=== PATIENT | female | born 1955 | race African-American/Black ===

== ENCOUNTER 2020-01-02 20:15 | Inpatient (IN) | payer OTHER, MEDICAID ==
[~2020-01-02] VITALS: Ht 162.6 cm; Wt 101.5 kg
[2020-01-02] MEDS ORDERED: NITROGLYCERIN 0.2MG/HR TOPICAL PATCH TD ONE ×2 (20:51→21:00)
[2020-01-02] MEDS ORDERED: NITROGLYCERIN 0.4 MG SL TAB SL ONE ×2 (20:52→21:00)
[2020-01-02] MEDS ORDERED: ASPirin 325 MG TAB ONE (20:52)
[2020-01-02] MEDS ORDERED: ASPirin 325 MG TAB PO ONE (21:00)
[2020-01-02 21:14] LABS: Basophils # (auto) 0.1 10 ^3/uL (0-0.2); Basophils % (auto) 1.5 % (0.0-2.0); Eosinophils # (auto) 0.1 10 ^3/uL (0-0.8); Eosinophils % (auto) 0.7 % (0.0-7.0); Hematocrit 41.7 % (36.0-46.0); Hemoglobin 13.7 g/dL (12.2-16.2); Lymphocytes # (auto) 2.4 10 ^3/uL (0.4-5.4); Lymphocytes % (auto) 33.3 % (10.0-50.0); Mean Corpuscular Hemoglobin 31.5 pg (28.0-32.0); Mean Corpuscular Hgb Conc. 32.9 g/dL (32.0-36.0); Mean Corpuscular Volume 95.6 fL (80.0-100.0); Monocytes # (auto) 0.4 10 ^3/uL (0-1.3); Neutrophils # (auto) 4.2 10 ^3/uL (1.6-8.6); Neutrophils % (auto) 58.5 % (37.0-80.0); Nucleated Red Blood Cells % 0.1 %; Platelet Count (auto) 408 10^3/uL (140-450); Red Blood Cells 4.36 10^6/uL (4.0-5.20); Red Cell Distribution Width 13.6 % (11.8-14.3); White Blood Cell 7.2 10^3/uL (4.4-10.8)
[2020-01-02 21:20] LABS: Urine Bacteria MANY /hpf (None Seen); Urine Blood Negative /uL (Negative); Urine Specific Gravity 1.005 (1.001-1.035); Urine WBC 6 /hpf (0 - 5)
[2020-01-02 21:29] LABS: INR 1.04 (0.9-1.15)
[2020-01-02 21:36] LABS: Albumin 4.7 g/dL (3.4-5.0); Anion Gap 9 (5-15); Blood Urea Nitrogen 15 mg/dL (7-18); Calcium 9.6 mg/dL (8.5-10.1); Carbon Dioxide 23 mmol/L (21-32); Chloride 107 mmol/L (98-107); Glucose 123 mg/dL (74-106); Magnesium 2.4 mg/dL (1.6-2.6); Potassium 3.5 mmol/L (3.5-5.1); Sodium 139 mmol/L (136-145)
[2020-01-02 21:41] LABS: Alanine Aminotransferase 31 U/L (13-56); Alkaline Phosphatase 92 U/L (45-117); Aspartate Aminotransferase 25 U/L (15-37); BUN/Creatinine Ratio 16.9; Bilirubin, Total 0.6 mg/dL (0.2-1.0); GFR African American 83 mL/min; GFR Non-African American 68 mL/min; Total Protein 9.2 g/dL (6.4-8.2)
[2020-01-02] MEDS ORDERED: ONDANSETRON HCL 4 MG/2 ML VIAL IV ONE (22:30)
[2020-01-02] MEDS ORDERED: HYDROmorphone HCL 2 MG/ML VL IV ONE (22:30)
[2020-01-03] MEDS ORDERED: ACETAMINOPHEN/CODEINE#3 (300/30mg) TAB PO ONE (00:30)
[2020-01-03] MEDS ORDERED: NITROGLYCERIN 0.4 MG SL TAB SL PRN (00:45)
[2020-01-03] MEDS ORDERED: MORPHINE SULF INJ 2 MG/ML SYRINGE 1ML IV PRN ×4 (00:45→13:00)
[2020-01-03] MEDS ORDERED: ONDANSETRON HCL 4 MG/2 ML VIAL IV PRN (00:45)
[2020-01-03] MEDS ORDERED: ACETAMINOPHEN 325 MG TAB PO PRN (00:45)
[2020-01-03] MEDS ORDERED: LORazepam 0.5 MG TAB PO PRN (00:45)
[2020-01-03] MEDS ORDERED: DOCUSATE SOD 100 MG CAP PO PRN (00:45)
[2020-01-03] MEDS ORDERED: LORazepam 2MG/ML-1ML VIAL IV ONE (01:30)
[2020-01-03] MEDS: SODIUM CHLORIDE 0.9% 1,000 ML IV SCH ×2 (01:51→03:12)
[2020-01-03] MEDS: cefTRIAXone 1GM/50ML D5W 50 ML IV SCH ×2 (01:51→21:08)
[2020-01-03 03:21] LABS: Basophils # (auto) 0.1 10 ^3/uL (0-0.2); Basophils % (auto) 0.9 % (0.0-2.0); Eosinophils # (auto) 0 10 ^3/uL (0-0.8); Eosinophils % (auto) 0.2 % (0.0-7.0); Hematocrit 38.9 % (36.0-46.0); Hemoglobin 12.9 g/dL (12.2-16.2); Lymphocytes # (auto) 2.1 10 ^3/uL (0.4-5.4); Lymphocytes % (auto) 29.9 % (10.0-50.0); Mean Corpuscular Hgb Conc. 33.3 g/dL (32.0-36.0); Mean Corpuscular Volume 96.1 fL (80.0-100.0); Monocytes # (auto) 0.5 10 ^3/uL (0-1.3); Monocytes % (auto) 6.9 % (0.0-12.0); Neutrophils # (auto) 4.3 10 ^3/uL (1.6-8.6); Neutrophils % (auto) 62.1 % (37.0-80.0); Nucleated Red Blood Cells % 0.1 %; Platelet Count (auto) 384 10^3/uL (140-450); Red Blood Cells 4.04 10^6/uL (4.0-5.20); Red Cell Distribution Width 13.3 % (11.8-14.3)
[2020-01-03 03:40] LABS: Calcium 8.9 mg/dL (8.5-10.1); Potassium 3.9 mmol/L (3.5-5.1)
[2020-01-03 03:43] LABS: BUN/Creatinine Ratio 18.5
[2020-01-03] MEDS ORDERED: ACYC1CAP23 PO (04:02)
[2020-01-03] MEDS ORDERED: AMLO5TAB15 PO (04:02)
[2020-01-03] MEDS ORDERED: CHOL20009 PO (04:02)
[2020-01-03] MEDS ORDERED: ATO40T PO (04:02)
[2020-01-03] MEDS ORDERED: TRAZ-181 PO (04:02)
[2020-01-03] MEDS ORDERED: HYDR-4833 PO (04:02)
[2020-01-03] MEDS ORDERED: FLUO-125 PO (04:02)
[2020-01-03] MEDS ORDERED: GABA300C10 PO (04:02)
[2020-01-03] MEDS ORDERED: TIZA4CAP PO (04:02)
[2020-01-03] MEDS ORDERED: HYDR-4833 GT (04:02)
[2020-01-03] MEDS ORDERED: OXYB5TAB24 PO (04:03)
[2020-01-03] MEDS: cloNIDine HCL 0.1 MG TAB PO PRN (05:02)
[2020-01-03 09:00] VITALS: BP 115/70
[2020-01-03] MEDS ORDERED: POTASSIUM CHLORIDE 8 MEQ TAB PO ONE (12:15)
[2020-01-03] MEDS ORDERED: HCTZ 25 MG TAB PO ONE (12:15)
[2020-01-03 13:00] VITALS: BP 127/79
[2020-01-03 17:00] VITALS: BP 130/87
[2020-01-03] MEDS: amLODIPine BESYLATE 5 MG TAB PO SCH (17:24)
[2020-01-03] MEDS ORDERED: LORazepam 2MG/ML-1ML VIAL IV PRN (19:30)
[2020-01-03 20:00] VITALS: BP 135/87
[2020-01-03] MEDS: HYDROcodone-ACET 5/325MG TAB PO PRN (21:07)
[2020-01-03] MEDS: PRAMIPEXOLE DIHYDROCHLORIDE MO 0.25 MG TAB PO SCH (21:10)
[2020-01-03 21:19] VITALS: BP 115/70
[2020-01-03 22:00] VITALS: BP 135/87
[2020-01-03 22:49] LABS: % Iron Saturation 21.8 % (15-50)
[2020-01-03 23:02] LABS: Folate (Folic Acid) > 24.00 ng/mL (5.38-24)
[2020-01-04] VITALS (7 sets, daily range): BP systolic 115–161; BP diastolic 66–98
[2020-01-04 06:47] LABS: Potassium 3.9 mmol/L (3.5-5.1)
[2020-01-04 06:55] LABS: BUN/Creatinine Ratio 14.5; Calcium 9.5 mg/dL (8.5-10.1)
[2020-01-04 06:56] LABS: Basophils # (auto) 0 10 ^3/uL (0-0.2); Basophils % (auto) 0.7 % (0.0-2.0); Eosinophils # (auto) 0.1 10 ^3/uL (0-0.8); Eosinophils % (auto) 1.6 % (0.0-7.0); Hematocrit 41.2 % (36.0-46.0); Hemoglobin 13.7 g/dL (12.2-16.2); Lymphocytes # (auto) 1.7 10 ^3/uL (0.4-5.4); Lymphocytes % (auto) 39.1 % (10.0-50.0); Mean Corpuscular Hemoglobin 31.8 pg (28.0-32.0); Mean Corpuscular Hgb Conc. 33.2 g/dL (32.0-36.0); Mean Corpuscular Volume 95.9 fL (80.0-100.0); Monocytes # (auto) 0.4 10 ^3/uL (0-1.3); Monocytes % (auto) 9.2 % (0.0-12.0); Neutrophils # (auto) 2.2 10 ^3/uL (1.6-8.6); Neutrophils % (auto) 49.4 % (37.0-80.0); Nucleated Red Blood Cells % 0.2 %; Platelet Count (auto) 413 10^3/uL (140-450); Red Cell Distribution Width 13.7 % (11.8-14.3); White Blood Cell 4.5 10^3/uL (4.4-10.8)
[2020-01-04] MEDS: HYDROcodone-ACET 5/325MG TAB PO PRN ×2 (07:55→11:56)
[2020-01-04] MEDS: POTASSIUM CHLORIDE 8 MEQ TAB PO SCH (08:51)
[2020-01-04] MEDS: amLODIPine BESYLATE 5 MG TAB PO SCH (08:52)
[2020-01-04] MEDS: HCTZ 25 MG TAB PO SCH (08:52)
[2020-01-04] MEDS ORDERED: LOSARTAN POTASSIUM 25 MG TAB PO SCH (10:00)
[2020-01-04] MEDS ORDERED: LOSARTAN POTASSIUM 25 MG TAB PO ONE (10:15)
[2020-01-04] MEDS: cloNIDine HCL 0.1 MG TAB PO PRN (12:24)
[2020-01-04] MEDS: cefTRIAXone 1GM/50ML D5W 50 ML IV SCH (22:30)
[2020-01-04] MEDS: LOSARTAN POTASSIUM 25 MG TAB PO SCH (22:31)
[2020-01-04] MEDS: PRAMIPEXOLE DIHYDROCHLORIDE MO 0.25 MG TAB PO SCH (22:32)
[2020-01-05] MEDS: HYDROcodone-ACET 5/325MG TAB PO PRN ×2 (00:46→13:23)
[2020-01-05 05:00] VITALS: BP 145/76
[2020-01-05 05:36] LABS: Basophils # (auto) 0 10 ^3/uL (0-0.2); Eosinophils # (auto) 0.1 10 ^3/uL (0-0.8); Eosinophils % (auto) 1.5 % (0.0-7.0); Hematocrit 41.1 % (36.0-46.0); Hemoglobin 13.8 g/dL (12.2-16.2); Lymphocytes # (auto) 2.1 10 ^3/uL (0.4-5.4); Lymphocytes % (auto) 42.3 % (10.0-50.0); Mean Corpuscular Hemoglobin 32.2 pg (28.0-32.0); Mean Corpuscular Hgb Conc. 33.5 g/dL (32.0-36.0); Mean Corpuscular Volume 96.1 fL (80.0-100.0); Monocytes # (auto) 0.4 10 ^3/uL (0-1.3); Monocytes % (auto) 8.7 % (0.0-12.0); Neutrophils # (auto) 2.3 10 ^3/uL (1.6-8.6); Neutrophils % (auto) 46.5 % (37.0-80.0); Platelet Count (auto) 382 10^3/uL (140-450); Red Blood Cells 4.27 10^6/uL (4.0-5.20); Red Cell Distribution Width 13.6 % (11.8-14.3)
[2020-01-05 05:51] LABS: Anion Gap 7 (5-15); Blood Urea Nitrogen 15 mg/dL (7-18); Calcium 9.6 mg/dL (8.5-10.1); Carbon Dioxide 28 mmol/L (21-32); Chloride 104 mmol/L (98-107); Glucose 104 mg/dL (74-106); Potassium 3.7 mmol/L (3.5-5.1); Sodium 139 mmol/L (136-145)
[2020-01-05 05:56] LABS: BUN/Creatinine Ratio 16.9; GFR African American 83 mL/min; GFR Non-African American 68 mL/min
[2020-01-05 09:00] VITALS: BP 128/71
[2020-01-05] MEDS: amLODIPine BESYLATE 5 MG TAB PO SCH (09:59)
[2020-01-05] MEDS: POTASSIUM CHLORIDE 8 MEQ TAB PO SCH (09:59)
[2020-01-05] MEDS: LOSARTAN POTASSIUM 25 MG TAB PO SCH (09:59)
[2020-01-05] MEDS: HCTZ 25 MG TAB PO SCH (10:00)
[2020-01-05 12:23] VITALS: BP 128/71
[2020-01-05 12:44] VITALS: BP 154/93
== END 2020-01-05 15:25 | disposition home or self-care (01) | DRG 304 ==
LOC: ER 20:16 → TELE 20:17 → TELE-CENTR 01-03 05:24
PROVIDERS: ADMIT Hospitalist; ATTEND Internal Medicine
DX: I16.0 Hypertensive urgency (principal); I50.33 Acute on chronic diastolic (congestive) heart failure; I67.4 Hypertensive encephalopathy; J98.11 Atelectasis; N39.0 Urinary tract infection, site not specified; I11.0 Hypertensive heart disease with heart failure; I20.9 Angina pectoris, unspecified; E66.01 Morbid (severe) obesity due to excess calories; E78.5 Hyperlipidemia, unspecified; E61.1 Iron deficiency; G25.81 Restless legs syndrome; G43.909 Migraine, unspecified, not intractable, without status migrainosus; G47.00 Insomnia, unspecified; G47.10 Hypersomnia, unspecified; H53.2 Diplopia; Z96.652 Presence of left artificial knee joint; G89.29 Other chronic pain; M54.5 Low back pain; G47.30 Sleep apnea, unspecified; Z82.49 Family history of ischemic heart disease and other diseases of the circulatory system; Z83.3 Family history of diabetes mellitus; Z68.37 Body mass index [BMI] 37.0-37.9, adult
CPT/HCPCS: 36415; 70450; 70551; 71046; 76705; 80048; 80053; 80061; 81001; 82607; 82728; 82746; 83036; 83540; 83550; 83735; 83880; 84155; 84165; 84443; 84484; 85025; 85610; 85730; 87086; 93005; 93306; G0378; J0696; J2405

== ENCOUNTER 2022-07-11 07:11 | Day surgery (SDC) | payer OTHER, MEDICAID ==
[~2022-07-11] VITALS: Ht 162.6 cm; Wt 108.4 kg
[2022-07-11] VITALS (10 sets, daily range): BP systolic 120–144; BP diastolic 69–89
[~2022-07-11 07:11] MED LIST: ACYC1CAP23 PO; AMLO-489 PO; ATO40T PO; CHOL20009 PO; FLUO-125 PO; GABA300C10 PO; HYDR-4833 GT; HYDR-4833 PO; OXYB5TAB24 PO; TIZA4CAP PO; TRAZ-181 PO
[2022-07-11] MEDS ORDERED: IODIXANOL 320MG/ML 100ML BTL IV ONE (07:41)
[2022-07-11] MEDS ORDERED: HEPARIN SODIUM (PORCINE) 5000 UNITS/ML 1ML VIAL ONE (08:15)
[2022-07-11] MEDS ORDERED: VERAPAMIL 2.5MG/ML INJ 2ML VIAL IV ONE (08:16)
[2022-07-11] MEDS ORDERED: fentaNYL CITRATE 100 MCG/2 ML VL ONE (08:16)
[2022-07-11] MEDS ORDERED: MIDAZOLAM HCL 2MG/2ML 2ml VIAL (1mg/ml) ONE (08:16)
[2022-07-11] MEDS ORDERED: LIDOCAINE 2%HCL (LOCAL ANESTH.) INJ 20ML MDV ONE (08:17)
[2022-07-11] MEDS ORDERED: SODIUM CHL 0.9% 50 ML ONE ×2 (08:24→08:47)
[2022-07-11] MEDS ORDERED: NITROGLYCERIN 5MG/ML 10ML VIAL IV ONE (08:24)
[2022-07-11] MEDS ORDERED: ANGIOMAX 250 MG VIAL IV ONE (08:47)
[2022-07-11] MEDS ORDERED: TICAGRELOR 90 MG TAB ONE (08:57)
[2022-07-11] MEDS ORDERED: ASPirin 325 MG TAB ONE (08:57)
== END 2022-07-11 15:10 | disposition home or self-care (01) ==
LOC: CATH 07:11
PROVIDERS: ATTEND Internal Medicine
DX: I25.118 Atherosclerotic heart disease of native coronary artery with other forms of angina pectoris (principal); R94.39 Abnormal result of other cardiovascular function study; R07.9 Chest pain, unspecified; I77.1 Stricture of artery; R73.03 Prediabetes; I10 Essential (primary) hypertension; M19.90 Unspecified osteoarthritis, unspecified site; Z79.899 Other long term (current) drug therapy; Z20.822 Contact with and (suspected) exposure to COVID-19
CPT/HCPCS: 93458; C1726; C1769; C1874; C1887; C1894; C9600; J0583; J1644; J2250; J3010; J3490; J7030; Q9967; U0003; 99152; 99153

== ENCOUNTER 2023-03-21 07:16 | Day surgery (SDC) | payer OTHER, MEDICAID ==
[2023-03-21] VITALS (10 sets, daily range): BP systolic 106–117; BP diastolic 69–74; PULSE 56–64; RESP 11–17; TEMP 97.2; O2SAT 94–98
[~2023-03-21] VITALS: Ht 162.6 cm; Wt 108.0 kg
[~2023-03-21 07:16] MED LIST changes: -ACYC1CAP23 PO; +ACYC400T16 PO; +AML5T PO; -AMLO-489 PO; +ASCO500T11 PO; +ASPI-543 PO; +CLOP75TA28 PO; +CYAN1TAB11 PO; +CYCL-611 PO; +FAMO-161 PO; +FERR325T24 PO; +FLUO1TAB14 PO; +FURO1TAB31 PO; +GABA-1250 PO; -GABA300C10 PO; +HYDR-4798 PO; -HYDR-4833 GT; -HYDR-4833 PO; +KRIL1CAP14 PO; +LORA-622 PO; +MULT-691 PO; +NALO1TAB4 PO; +NITR0.4S29 SL; +OMEP20TA85 PO; +POTA-228 PO; +POTA8TAB38 PO; +RANO10003 PO; -TIZA4CAP PO; +VITA-89 PO
[2023-03-21] MEDS ORDERED: IODIXANOL 320MG/ML 100ML BTL IV ONE ×2 (07:21→08:14)
[2023-03-21] MEDS ORDERED: LIDOCAINE 2%HCL (LOCAL ANESTH.) INJ 20ML MDV ONE (07:21)
[2023-03-21] MEDS ORDERED: IOHEXOL 350 MG/ML 100ML IJ ONE (07:22)
[2023-03-21] MEDS ORDERED: HEPARIN SODIUM (PORCINE) 5000 UNITS/ML 1ML VIAL ONE (08:04)
[2023-03-21] MEDS ORDERED: VERAPAMIL 2.5MG/ML INJ 2ML VIAL IV ONE (08:04)
[2023-03-21] MEDS ORDERED: ANGIOMAX 250 MG VIAL IV ONE (08:04)
[2023-03-21] MEDS ORDERED: MIDAZOLAM HCL 2MG/2ML 2ml VIAL (1mg/ml) ONE (08:05)
[2023-03-21] MEDS ORDERED: SODIUM CHL 0.9% 0 ML ONE (08:05)
[2023-03-21] MEDS ORDERED: fentaNYL CITRATE 100 MCG/2 ML VL ONE (08:05)
== END 2023-03-21 11:23 | disposition home or self-care (01) ==
LOC: CATH 07:16
PROVIDERS: ATTEND Internal Medicine
DX: I25.118 Atherosclerotic heart disease of native coronary artery with other forms of angina pectoris (principal); I10 Essential (primary) hypertension; Z79.899 Other long term (current) drug therapy; Z98.890 Other specified postprocedural states; Z79.82 Long term (current) use of aspirin; Z95.5 Presence of coronary angioplasty implant and graft
CPT/HCPCS: 93458; C1725; C1769; C1894; J1644; J2250; J3010; J7030; Q9967; 93005; 99152

== ENCOUNTER 2024-01-25 08:42 | Inpatient (IN) | payer OTHER, MEDICAID ==
[~2024-01-25] VITALS: Ht 162.6 cm; Wt 109.8 kg
[~2024-01-25 08:42] MED LIST changes: -ATO40T PO; +ATOR-507 PO
[2024-01-25 10:02] LABS: Urine Bacteria FEW /hpf (None Seen); Urine Blood Negative /uL (Negative); Urine Clarity Clear (Clear); Urine Color Yellow (Yellow); Urine Protein, UAD Negative (Negative); Urine Specific Gravity 1.018 (1.001-1.035); Urine Urobilinogen Normal (Negative); Urine WBC 6 /hpf (0 - 5)
[2024-01-25 10:19] LABS: Chloride 108 mmol/L (98-107); Potassium 4.1 mmol/L (3.5-5.1); Sodium 143 mmol/L (136-145)
[2024-01-25 10:20] LABS: Anion Gap 4 (5-15); Calcium 10.1 mg/dL (8.5-10.1); Carbon Dioxide 31 mmol/L (20-30)
[2024-01-25 10:25] LABS: Blood Urea Nitrogen 19 mg/dL (9-23); Glucose 103 mg/dL (74-106)
[2024-01-25 10:29] LABS: Basophils # (auto) 0 10 ^3/uL (0-0.2); Basophils % (auto) 0.5 % (0.0-2.0); Eosinophils # (auto) 0.1 10 ^3/uL (0-0.8); Eosinophils % (auto) 1.7 % (0.0-7.0); Hematocrit 38.4 % (36.0-46.0); Hemoglobin 13.1 g/dL (12.2-16.2); Lymphocytes # (auto) 1.7 10 ^3/uL (0.4-5.4); Mean Corpuscular Hemoglobin 33.4 pg (28.0-32.0); Mean Corpuscular Volume 98.3 fL (80.0-100.0); Monocytes # (auto) 0.4 10 ^3/uL (0-1.3); Monocytes % (auto) 7.6 % (0.0-12.0); Neutrophils # (auto) 2.8 10 ^3/uL (1.6-8.6); Neutrophils % (auto) 56.2 % (37.0-80.0); Nucleated Red Blood Cells % 0.1 %; Red Cell Distribution Width 13.9 % (11.8-14.3)
[2024-01-25] MEDS ORDERED: ONDANSETRON HCL 4 MG/2 ML VIAL IV PRN (11:00)
[2024-01-25] MEDS ORDERED: MORPHINE SULFATE 4 MG/ML SYR/VIAL IV PRN (11:00)
[2024-01-25] MEDS ORDERED: ACETAMINOPHEN 325 MG TAB PO PRN (11:00)
[2024-01-25] MEDS ORDERED: NITROGLYCERIN 0.4 MG SL TAB SL PRN ×2 (11:00→12:30)
[2024-01-25] MEDS: ASPirin 81 mg TAB PO SCH (11:28)
[2024-01-25] MEDS ORDERED: MORPHINE SULFATE INJ 2 MG/ml SYRG IV PRN (12:30)
[2024-01-25] MEDS ORDERED: PATIENTS OWN MEDICATION (Fluoxetine HCl (Pmdd) (Fluoxetine HCl) 20 MG) PO SCH (14:00)
[2024-01-25] MEDS: GABAPENTIN 300 MG CAP PO SCH (14:25)
[2024-01-25] MEDS: HYDROcodone-ACET 10/325MG TAB PO PRN (14:33)
[2024-01-25 15:04] LABS: Base Excess 1.9 mmol/L (-2.0-2.0)
[2024-01-25] MEDS: METOPROLOL TARTRATE 25 MG TAB PO ONE (15:45)
[2024-01-25 21:30] LABS: COVID19 ANTIGEN SOFIA FIA NEGATIVE (NEGATIVE)
[2024-01-25] MEDS: METOPROLOL TARTRATE 25 MG TAB PO SCH (22:45)
[2024-01-25] MEDS: ATORVASTATIN 20 MG TAB PO SCH (22:58)
[2024-01-25] MEDS: NITROFURANTOIN 100 mg CAP PO SCH (22:58)
[2024-01-25] MEDS: traZODone HCL 50 MG TAB PO SCH (22:59)
[2024-01-25 23:35] VITALS: PULSE 52
[2024-01-26] VITALS (8 sets, daily range): BP systolic 112–160; BP diastolic 59–90; PULSE 53–60; RESP 16–20; TEMP 97.4–98.6; O2SAT 93–96
[2024-01-26 07:33] LABS: Basophils # (auto) 0 10 ^3/uL (0-0.2); Basophils % (auto) 0.6 % (0.0-2.0); Eosinophils # (auto) 0.2 10 ^3/uL (0-0.8); Eosinophils % (auto) 3.2 % (0.0-7.0); Hematocrit 39.3 % (36.0-46.0); Hemoglobin 13.5 g/dL (12.2-16.2); Lymphocytes % (auto) 42.4 % (10.0-50.0); Mean Corpuscular Hgb Conc. 34.3 g/dL (32.0-36.0); Monocytes # (auto) 0.5 10 ^3/uL (0-1.3); Monocytes % (auto) 10.3 % (0.0-12.0); Neutrophils # (auto) 2.1 10 ^3/uL (1.6-8.6); Neutrophils % (auto) 43.5 % (37.0-80.0); Nucleated Red Blood Cells % 0.4 %; Red Blood Cells 3.97 10^6/uL (4.0-5.20); Red Cell Distribution Width 14.2 % (11.8-14.3); White Blood Cell 4.8 10^3/uL (4.4-10.8)
[2024-01-26 07:38] LABS: Alanine Aminotransferase 26 U/L (7-40); Alkaline Phosphatase 71 U/L (46-116); Anion Gap 6 (5-15); Aspartate Aminotransferase 22 U/L (13-40); Calcium 10.4 mg/dL (8.5-10.1); Carbon Dioxide 30 mmol/L (20-30); Chloride 107 mmol/L (98-107); Glucose 95 mg/dL (74-106); Potassium 3.4 mmol/L (3.5-5.1); Sodium 143 mmol/L (136-145); Triglycerides 108 mg/dL (< 150)
[2024-01-26 07:39] LABS: LDL Cholesterol 114 mg/dL (< 100)
[2024-01-26 07:40] LABS: Albumin 4.6 g/dL (3.2-4.8); BUN/Creatinine Ratio 11.8 (10.0-20.0); Bilirubin, Total 0.6 mg/dL (0.2-1.0); Blood Urea Nitrogen 11 mg/dL (9-23); Cholesterol 204 mg/dL (< 200); HDL Cholesterol 69 mg/dL (40-59); Total Protein 7.7 g/dL (5.7-8.2)
[2024-01-26] MEDS ORDERED: PATIENTS OWN MEDICATION (Atorvastatin Calcium (Lipitor) 1 TAB) PO SCH (10:00)
[2024-01-26] MEDS ORDERED: ASPirin-EC 81 mg tab PO SCH (10:00)
[2024-01-26] MEDS: FUROSEMIDE 40 MG/4 ML VIAL IV SCH (10:32)
[2024-01-26] MEDS: FAMOTIDINE 20 MG TAB PO SCH (10:33)
[2024-01-26] MEDS: amLODIPine BESYLATE 5 MG TAB PO SCH (10:33)
[2024-01-26] MEDS: DOCUSATE SOD 100 MG CAP PO SCH (10:33)
[2024-01-26] MEDS: CLOPIDOGREL BISULFATE 75 MG TAB PO SCH (10:33)
[2024-01-26] MEDS: FLUoxetine HCL 20 MG CAP PO SCH (10:34)
[2024-01-27 01:00] VITALS: BP 129/76; PULSE 62; RESP 18; TEMP 97.7; O2SAT 93
[2024-01-27 05:00] VITALS: BP 117/62; PULSE 64; RESP 16; TEMP 98.1; O2SAT 90
[2024-01-27 08:00] VITALS: PULSE 61; O2SAT 96
[2024-01-27 08:10] VITALS: BP 115/75; PULSE 64; RESP 20; TEMP 98.1; O2SAT 93
[2024-01-27 12:10] VITALS: BP 128/79; PULSE 61; RESP 20; TEMP 98.2; O2SAT 96
[2024-01-27 12:57] VITALS: BP 115/75; PULSE 64; RESP 19; TEMP 36.7; O2SAT 94
== END 2024-01-27 15:10 | disposition home or self-care (01) | DRG 291 ==
LOC: ER 08:42 → TELE 12:24 → TELE-WESTW 23:37
PROVIDERS: ADMIT Nurse Practitioner Family; ATTEND Family Medicine
DX: I11.0 Hypertensive heart disease with heart failure (principal); I50.33 Acute on chronic diastolic (congestive) heart failure; J96.01 Acute respiratory failure with hypoxia; N30.00 Acute cystitis without hematuria; Z68.41 Body mass index [BMI] 40.0-44.9, adult; I25.110 Atherosclerotic heart disease of native coronary artery with unstable angina pectoris; Z20.822 Contact with and (suspected) exposure to COVID-19; I25.9 Chronic ischemic heart disease, unspecified; G89.29 Other chronic pain; E66.9 Obesity, unspecified; H93.13 Tinnitus, bilateral; E78.00 Pure hypercholesterolemia, unspecified; F32.A Depression, unspecified; G62.9 Polyneuropathy, unspecified; Z95.5 Presence of coronary angioplasty implant and graft; Z90.710 Acquired absence of both cervix and uterus; Z82.3 Family history of stroke; Z82.49 Family history of ischemic heart disease and other diseases of the circulatory system
CPT/HCPCS: 36415; 36600; 71046; 80048; 80053; 80061; 81001; 82805; 83735; 83880; 84484; 85025; 85379; 87086; 87426; 93005; 93306; G0378